=== PATIENT | female | born 2000 | race Caucasian/White ===

== ENCOUNTER → 2022-06-15 12:21 | Outpatient (CLI) | payer MEDICARE, MEDICAID, SELFPAY ==
--- NOTE | 2022-06-15 | DI.CT.S_ITS ---
PROCEDURE: CT ABDOMEN PELVIS W CON INDICATIONS: Right lower quadrant pain TECHNIQUE: After the administration of oral and intravenous contrast, axial sections were acquired from the lung bases to the pubic symphysis. Coronal and sagittal reformats were performed. For radiation dose reduction, the following was used: automated exposure control, adjustment of mA and/or kV according to patient size. COMPARISON:None. FINDINGS: Image quality: Excellent. Lung bases: Unremarkable. Heart: No significant findings. ABDOMEN: Liver: Unremarkable. Gallbladder: Unremarkable. Biliary ducts: Unremarkable. Pancreas: Unremarkable. Spleen: Unremarkable. Adrenal Glands: Unremarkable. Kidneys and Ureters: Unremarkable. Stomach and Bowel: Stomach, small bowel loops, and colon are unremarkable. A normal appendix is seen. Peritoneum: No abnormal intraperitoneal fluid. No free air. Ventral Wall: No hernia. Abdominal Nodes: No retroperitoneal or mesenteric adenopathy by size criteria. There are mildly prominent right lower quadrant mesenteric lymph nodes. Vessels: Aorta and inferior vena cava are normal in size. PELVIS: Pelvic Organs: There is a 3 cm maximum diameter right adnexal cyst. Bladder: Unremarkable. Pelvic Nodes: No enlarged lymph nodes. Miscellaneous: No inguinal hernias are seen. Bones: Unremarkable. IMPRESSION: 1. Normal appendix. 2. A 3 cm maximum diameter right ovarian cystic lesion may be the cause of patient's symptomatology. 3. There are mildly prominent right lower quadrant mesenteric lymph nodes. Consider possible mesenteric adenitis. Dictated by: Nick Doe M.D. on 06/15/2022 at 16:04 Approved by: Nick Doe M.D. on 06/15/2022 at 16:07
== END ==
PROVIDERS: PCP Internal Medicine; Referring Provider Internal Medicine; Visit Provider Internal Medicine
DX: N83.201 Unspecified ovarian cyst, right side (principal); R59.0 Localized enlarged lymph nodes; R10.33 Periumbilical pain; R10.31 Right lower quadrant pain
CPT/HCPCS: 74177; Q9967

== ENCOUNTER → 2025-08-09 13:34 | Outpatient (CLI) | payer MEDICARE, MEDICAID, SELFPAY ==
[2025-08-09 15:32] LABS: Influenza A - CEPHEID Flu A NEGATIVE (NEGATIVE); Influenza B - CEPHEID Flu B NEGATIVE (NEGATIVE)
[2025-08-09 15:43] LABS: COVID-19 CEPHEID 4-PLEX PCR Negative (Negative)
== END ==
PROVIDERS: PCP Internal Medicine; Visit Provider Registered Nurse
DX: R05.1 Acute cough (principal); J02.9 Acute pharyngitis, unspecified
CPT/HCPCS: 87070; 87637

== ENCOUNTER → 2025-08-09 14:08 | Outpatient (CLI) | payer MEDICARE, MEDICAID, SELFPAY ==
--- NOTE | 2025-08-09 14:12 | DI.RAD.S_ITS ---
PROCEDURE: XR CHEST 2V INDICATIONS: Shortness of breath TECHNIQUE: 2 views of the chest were acquired. COMPARISON: None. FINDINGS: Surgical changes and devices: None. Lungs and pleura: Lungs are clear. No pleural effusions or pneumothorax. Mediastinum: Mediastinal contours are normal. Heart size is normal. Bones and chest wall: No suspicious bony abnormalities. Soft tissues appear unremarkable. IMPRESSION: No acute cardiopulmonary abnormality is seen. Approved by: Arik Carolina M.D. on 08/09/2025 at 14:15
== END ==
LOC: RAD 14:11
PROVIDERS: PCP Internal Medicine; Referring Provider Registered Nurse; Visit Provider Registered Nurse
DX: R06.02 Shortness of breath (principal); R05.1 Acute cough; J02.9 Acute pharyngitis, unspecified
CPT/HCPCS: 71046; 87070; 87077; 87147; 87637; 87880